=== PATIENT | female | born 1990 | race Asian ===

== ENCOUNTER → 2021-01-13 10:41 | Outpatient (CLI) | payer OTHER, SELFPAY ==
[2021-01-13 11:40] LABS: Hematocrit 41.4 % (36-46); Hemoglobin 13.7 g/dL (12.0-16.0); Mean Corpuscular HGB Conc 33.2 % (30-36); Mean Corpuscular Hemoglobin 26.7 PG (26-34); Mean Corpuscular Volume 80.5 fL (80-100); Platelet Count 296 X10^3/uL (150-400); Red Blood Cell Count 5.15 X10^6/uL (4.0-5.2); Red Cell Distribution Width 13.5 % (11.6-14.8); White Blood Cell Count 6.4 X10^3/uL (4.5-11.0)
[2021-01-13 12:14] LABS: Alanine Aminotransferase 14 IU/L (<35); Albumin 3.7 g/dL (3.5-5.0); Albumin Globulin Ratio 1.2 (1.0-2.8); Alkaline Phosphatase 62 U/L (38-126); Aspartate Aminotransferase 23 IU/L (14-36); BUN Creatinine Ratio 16.7 (6-22); Bilirubin Total 0.3 mg/dL (0.2-1.3); Blood Urea Nitrogen 11 mg/dL (7-17); Calcium 8.9 mg/dL (8.4-10.2); Carbon Dioxide 27 mmol/L (22-32); Chloride 102 mmol/L (98-107); Cholesterol 247 mg/dL (140-199); Estimated Glomerular Filt Rate > 60.0 mL/min (>60); Globulin 3.2 g/dL (1.7-4.1); Glucose 87 mg/dL (70-100); HDL Cholesterol 70 mg/dL (40-60); HEMOLYSIS < 15 (0-50); LDL Cholesterol Calculated 146 mg/dL (<100); Potassium 3.9 mmol/L (3.4-5.1); Sodium 135 mmol/L (137-145); Total Protein 6.9 g/dL (6.3-8.2); Triglycerides 155 mg/dL (35-150)
[2021-01-13 12:23] LABS: Follicle Stimulating Hormone 6.41 mIU/mL
[2021-01-13 12:39] LABS: Estradiol, Total 45.6 pg/mL
[2021-01-13 12:40] LABS: TSH w/ Reflex to FT4 1.71 uIU/mL (0.47-4.68)
[2021-01-13 12:44] LABS: Testosterone 54.3 ng/dL (5.71-77.0)
[2021-01-13 17:27] LABS: Prolactin 17.1 ng/mL (3.0-18.6)
== END ==
PROVIDERS: PCP Registered Nurse Diabetes Educator; Referring Provider Registered Nurse Diabetes Educator; Visit Provider Registered Nurse Diabetes Educator
DX: Z00.00 Encounter for general adult medical examination without abnormal findings (principal); N91.5 Oligomenorrhea, unspecified; Z83.3 Family history of diabetes mellitus
CPT/HCPCS: 36415; 80053; 80061; 82627; 82670; 83001; 83002; 83498; 84146; 84403; 84443; 85027

== ENCOUNTER → 2024-01-31 13:04 | Outpatient (CLI) | payer OTHER, SELFPAY ==
[2024-01-31 14:35] LABS: Alanine Aminotransferase 17 IU/L (<35); Albumin 3.2 g/dL (3.5-5.0); Alkaline Phosphatase 65 U/L (38-126); Aspartate Aminotransferase 26 IU/L (14-36); BUN Creatinine Ratio 22.5 (6-22); Bilirubin Total 0.4 mg/dL (0.2-1.3); Blood Urea Nitrogen 16 mg/dL (7-17); Calcium 9.5 mg/dL (8.4-10.2); Carbon Dioxide 24 mmol/L (22-32); Chloride 106 mmol/L (98-107); Estimated Glomerular Filt Rate > 60 mL/min (>60); Globulin 3.1 g/dL (1.7-4.1); Glucose 88 mg/dL (70-100); Potassium 4.6 mmol/L (3.4-5.1); Sodium 135 mmol/L (137-145); Total Protein 6.3 g/dL (6.3-8.2)
[2024-01-31 14:36] LABS: HEMOLYSIS 55 (0-50)
== END ==
PROVIDERS: PCP Registered Nurse Diabetes Educator; Referring Provider Physician Assistant; Visit Provider Physician Assistant
DX: N91.5 Oligomenorrhea, unspecified (principal); E28.2 Polycystic ovarian syndrome; Z11.3 Encounter for screening for infections with a predominantly sexual mode of transmission
CPT/HCPCS: 36415; 80053; 83036

== ENCOUNTER → 2024-02-08 13:13 | Outpatient (CLI) | payer OTHER, SELFPAY ==
--- NOTE | 2024-02-08 13:13 | DI.US.S_ITS ---
PROCEDURE: US PELVIC COMPLETE INDICATIONS: PCOS; DUB TECHNIQUE: Real-time scanning was performed of the pelvic organs, with image documentation. Additional endovaginal scanning was necessary due to incomplete visualization of the adnexal and endometrial structures by transabdominal scanning. COMPARISON: None. FINDINGS: Uterus: Uterus is anteverted and normal in size at 4.6 x 3.0 x 4.3 cm. The myometrium is homogeneous. The endometrium measures 10 mm combined thickness. No gross endometrial mass or fluid is seen. Ovaries: The right ovary measures 1.5 x 3.1 x 1.6 cm, with a calculated ovarian volume of 3.9 cc. The left ovary measures 2.6 x 1.4 x 1.6 cm, with a calculated ovarian volume of 3.0 cc. The ovaries have a normal sonographic appearance. Less than 12 follicles can be seen in each ovary. No adnexal masses are seen. Other: No pathologic free abdominal or pelvic fluid. IMPRESSION: Unremarkable ultrasound examination of uterus and bilateral ovaries. We strive to produce accurate, complete, and clear reports of imaging services. To assist us in improving patient care, this report was composed using standard report templates and voice recognition software. Therefore, it may contain abnormal punctuation, insertions and/or omissions. Occasional wrong-word or sound-alike substitutions may occur. Though we review the report and make efforts to correct it, we do recommend that the report be read carefully in proper context to recognize any text inaccuracies. Dictated by: Humble Joaquin M.D. on 02/08/2024 at 17:02 Approved by: Humble Joaquin M.D. on 02/08/2024 at 17:05
== END ==
LOC: US 13:13
PROVIDERS: PCP Registered Nurse Diabetes Educator; Referring Provider Physician Assistant; Visit Provider Physician Assistant
DX: N91.5 Oligomenorrhea, unspecified (principal); E28.2 Polycystic ovarian syndrome; Z11.3 Encounter for screening for infections with a predominantly sexual mode of transmission
CPT/HCPCS: 76830; 76856

== ENCOUNTER → 2025-05-23 11:40 | Outpatient (CLI) | payer OTHER, SELFPAY ==
[2025-05-23 12:53] LABS: Hematocrit 38.2 % (36-46); Hemoglobin 12.8 g/dL (12.0-16.0); Mean Corpuscular HGB Conc 33.6 % (30-36); Mean Corpuscular Hemoglobin 26.3 PG (26-34); Mean Corpuscular Volume 78.2 fL (80-100); Platelet Count 336 X10^3/uL (150-400)
[2025-05-23 12:58] LABS: Hemoglobin A1C% w Est Avg Glu 5.2 % (4.0-6.0)
[2025-05-23 13:17] LABS: Alanine Aminotransferase 20 IU/L (<35); Albumin 3.0 g/dL (3.5-5.0); Albumin Globulin Ratio 1.2 (1.0-2.8); Alkaline Phosphatase 74 U/L (38-126); Blood Urea Nitrogen 15 mg/dL (7-17); Calcium 8.5 mg/dL (8.4-10.2); Carbon Dioxide 23 mmol/L (22-32); Chloride 106 mmol/L (98-107); Estimated Glomerular Filt Rate > 60 mL/min (>60); Globulin 2.6 g/dL (1.7-4.1); Glucose 82 mg/dL (70-99); HDL Cholesterol 71 mg/dL (40-60); HEMOLYSIS < 15 (0-50); Potassium 4.4 mmol/L (3.4-5.1); Sodium 132 mmol/L (137-145); Total Protein 5.6 g/dL (6.3-8.2); Triglycerides 192 mg/dL (35-150)
[2025-05-23 13:24] LABS: Cholesterol 341 mg/dL (140-199)
[2025-05-23 13:47] LABS: TSH w/ Reflex to FT4 1.55 uIU/mL (0.47-4.68)
== END ==
PROVIDERS: PCP Registered Nurse Diabetes Educator; Referring Provider Registered Nurse Diabetes Educator; Visit Provider Registered Nurse Diabetes Educator
DX: E78.5 Hyperlipidemia, unspecified (principal); E28.2 Polycystic ovarian syndrome; R03.0 Elevated blood-pressure reading, without diagnosis of hypertension
CPT/HCPCS: 36415; 80053; 80061; 83036; 84443; 85027

== ENCOUNTER → 2025-06-28 11:13 | Outpatient (CLI) | payer OTHER, SELFPAY ==
[2025-06-28 12:35] LABS: Alanine Aminotransferase 18 IU/L (<35); Albumin 3.1 g/dL (3.5-5.0); Albumin Globulin Ratio 1.3 (1.0-2.8); Alkaline Phosphatase 58 U/L (38-126); Cholesterol 228 mg/dL (140-199); Globulin 2.4 g/dL (1.7-4.1); HDL Cholesterol 90 mg/dL (40-60); HEMOLYSIS < 15 (0-50); Total Protein 5.5 g/dL (6.3-8.2); Triglycerides 119 mg/dL (35-150)
[2025-06-28 16:23] LABS: Hepatitis B Surface Antigen NEGATIVE s/c (NEGATIVE)
[2025-06-28 16:43] LABS: HIV 1 & 2 Ab/Ag 4th Gen Combo NEGATIVE (NEGATIVE)
[2025-07-03 11:11] LABS: ANA Screen, IFA Positive (.)
== END ==
PROVIDERS: PCP Registered Nurse Diabetes Educator; Referring Provider Registered Nurse Diabetes Educator; Visit Provider Registered Nurse Diabetes Educator
DX: N04.9 Nephrotic syndrome with unspecified morphologic changes (principal); R80.9 Proteinuria, unspecified; R31.9 Hematuria, unspecified; E78.5 Hyperlipidemia, unspecified; E88.09 Other disorders of plasma-protein metabolism, not elsewhere classified
CPT/HCPCS: 36415; 80061; 80076; 86038; 86160; 86225; 87340; 87389; 87522

== ENCOUNTER → 2025-07-24 11:31 | Outpatient (CLI) | payer OTHER, SELFPAY ==
[2025-07-24 12:20] LABS: Hematocrit 40.7 % (36-46); Hemoglobin 13.5 g/dL (12.0-16.0)
[2025-07-24 12:39] LABS: Blood Urea Nitrogen 13 mg/dL (7-17); Calcium 8.5 mg/dL (8.4-10.2); Carbon Dioxide 21 mmol/L (22-32); Chloride 108 mmol/L (98-107); Estimated Glomerular Filt Rate > 60 mL/min (>60); Glucose 85 mg/dL (70-99); HEMOLYSIS < 15 (0-50); Potassium 4.0 mmol/L (3.4-5.1); Sodium 135 mmol/L (137-145)
[2025-07-24 16:46] LABS: Protein (Total) Urine Random 838 mg/dL (0-12)
[2025-07-27 15:36] LABS: Antimyeloperoxidase Antibodies <0.2 units (0.0-0.9); Antiproteinase 3 Antibodies <0.2 units (0.0-0.9)
[2025-07-28 16:08] LABS: ANA Screen, IFA Positive (.)
[2025-07-30 09:39] LABS: Albumin 2.8 g/dL (2.9-4.4); Alpha-1-Globulin 0.2 g/dL (0.0-0.4); Alpha-2-Globulin 1.0 g/dL (0.4-1.0); Gamma Globulin 0.6 g/dL (0.4-1.8)
== END ==
PROVIDERS: PCP Registered Nurse Diabetes Educator; Referring Provider Registered Nurse Diabetes Educator; Visit Provider Internal Medicine Nephrology
DX: N04.9 Nephrotic syndrome with unspecified morphologic changes (principal); R76.8 Other specified abnormal immunological findings in serum
CPT/HCPCS: 80048; 82043; 82570; 82595; 83516; 83520; 84155; 84156; 84165; 84166; 85014; 85018; 85651; 86038; 86140; 86147; 86148; 86225; 86235; 86256

== ENCOUNTER → 2025-10-11 12:47 | Outpatient (CLI) | payer OTHER, SELFPAY ==
[2025-10-11 14:23] LABS: Blood Urea Nitrogen 14 mg/dL (7-17); Calcium 8.8 mg/dL (8.4-10.2); Carbon Dioxide 23 mmol/L (22-32); Chloride 106 mmol/L (98-107); Estimated Glomerular Filt Rate > 60 mL/min (>60); Glucose 89 mg/dL (70-99); HEMOLYSIS < 15 (0-50); Potassium 4.4 mmol/L (3.4-5.1); Sodium 137 mmol/L (137-145)
== END ==
PROVIDERS: PCP Registered Nurse Diabetes Educator; Referring Provider Registered Nurse Diabetes Educator; Visit Provider Registered Nurse Diabetes Educator
DX: I10 Essential (primary) hypertension (principal)
CPT/HCPCS: 80048

== ENCOUNTER → 2025-10-22 10:01 | Outpatient (CLI) | payer OTHER, SELFPAY ==
[2025-10-22 12:00] LABS: Alanine Aminotransferase 18 IU/L (<35); Albumin 3.5 g/dL (3.5-5.0); Albumin Globulin Ratio 1.2 (1.0-2.8); Alkaline Phosphatase 53 U/L (38-126); Globulin 2.9 g/dL (1.7-4.1); HEMOLYSIS < 15 (0-50); Total Protein 6.4 g/dL (6.3-8.2)
== END ==
PROVIDERS: PCP Registered Nurse Diabetes Educator; Referring Provider Registered Nurse Diabetes Educator; Visit Provider Registered Nurse Diabetes Educator
DX: N04.9 Nephrotic syndrome with unspecified morphologic changes (principal); Z51.81 Encounter for therapeutic drug level monitoring
CPT/HCPCS: 36415; 80076